=== PATIENT | male | born 1975 | race African-American/Black ===

== ENCOUNTER 2020-11-04 01:04 | Emergency (ER) | payer MEDICAID ==
[~2020-11-04] VITALS: Ht 182.9 cm; Wt 79.0 kg
[2020-11-04 01:14] VITALS: BP 116/67
[2020-11-04 02:22] LABS: BASOPHILS % 0.2 % (0.0-2.0); EOSINOPHILS % 1.3 % (0.0-5.0); HEMATOCRIT. 39.1 % (42.0-52.0); HEMOGLOBIN. 13.6 g/dL (14.0-18.0); LYMPHOCYTES % 14.4 % (20.0-50.0); MEAN CORPUSCULAR HEMOGLOBIN 35.7 pg (28.0-32.0); MEAN CORPUSCULAR VOLUME 102.9 fL (80.0-94.0); MEAN PLATELET VOLUME 6.6 fl (7.4-10.4); MONOCYTES % 7.5 % (2.0-8.0); NEUTROPHILS % 76.6 % (40.0-76.0); PLATELET 276 x1000/uL (130-400); RED CELL DISTRIBUTION WIDTH 14.1 % (11.6-14.6)
[2020-11-04] MEDS ORDERED: ONDANSETRON HCL 4MG/2ML INJ IV STA (02:24)
[2020-11-04 02:28] LABS: CHLORIDE 108 mEq/L (98-107)
[2020-11-04] MEDS ORDERED: SODIUM CHLORIDE 0.9% 1,000 ML IV ONE (02:30)
[2020-11-04] MEDS ORDERED: ONDA4TAB5 MT (03:36)
[2020-11-04] MEDS ORDERED: CLOT15CR27 TP (03:36)
== END 2020-11-04 03:45 | disposition home or self-care (01) ==
LOC: ER 01:04
DX: R11.2 Nausea with vomiting, unspecified (principal); B35.3 Tinea pedis; Z59.0 Homelessness
CPT/HCPCS: 36415; 80053; 83690; 85025; 96361; 96374; 99283; J2405; J7030; 96372